=== PATIENT | female | born 2000 | race Hispanic/Latino ===

== ENCOUNTER 2019-01-25 23:40 | Emergency (ER) | payer SELFPAY ==
[~2019-01-25] VITALS: Ht 157.5 cm; Wt 47.6 kg
[2019-01-26] MEDS ORDERED: ONDANSETRON HCL 4 MG ORAL DISINTEGRATING TAB PO ONE (00:15)
[2019-01-26] MEDS ORDERED: HYDROCODONE/APAP 10MG-325MG TAB PO ONE (00:15)
[2019-01-26] MEDS ORDERED: ONDANSETRON HCL 4 MG ORAL DISINTEGRATING TAB ONE (00:30)
[2019-01-26] MEDS ORDERED: HYDROCODONE/APAP 5MG-325MG TAB ONE (00:31)
--- NOTE | 2019-01-26 01:26 | NUR ---
DISCHARGE INSTRUCTIONS COMPENSATION PROGRAMS MANAGER ID # [id number]
== END 2019-01-26 01:01 | disposition home or self-care (01) ==
LOC: FSED 23:40
DX: G43.019 Migraine without aura, intractable, without status migrainosus (principal)
CPT/HCPCS: 99282; Q0162